=== PATIENT | female | born 1945 | race Caucasian/White ===

== ENCOUNTER → 2017-02-18 | Outpatient (CLI) | payer MEDICARE, BC ==
[~2017-02-18] MED LIST: ACETAMINOPHEN PO; AREDIA INJ; ASPIRIN PO; ASPIRIN81 M2 PO; BACTRIM DS TABL1 TA1 PO; CALTRATE 600+D PO; CALTRATE PLUS T1 TAB PO; CENTRUM PO; CERTAGEN PO; ENALAPRIL MALEA10 MG PO; FEMARA2.5 MG PO; GLUCOTROL PO; IBUPROFEN400 MG PO; LETROZOLE2.5 MG PO; LOVASTATIN20 MG PO; METAMUCIL0.52 G PO; METFORMIN HCL500 M1 PO; METFORMIN PO; MEVACOR PO; MULTI-VITAMIN1 EAC1; NESINA6.25 MG PO; NOLVADEX PO; NORCO 10/325 TA1 TAB PO; PERCOCET 10/3251 TAB PO; VASOTEC PO; VITAMIN E400 UNI1 PO; ZINC 50 MG; ZOVIRAX800 MG PO; [UNRECOGNIZED DRUG - REMARK]
--- NOTE | ~2017-02-18 | CT114 ---
[facility] A Service of [facility] RADIOLOGY TEXT RESULTS PATIENT: SAVANNAH MENDOSA LOCATION: CCAT : 47 UNIT #: [id number] AGE: [address]: Gina Fortune MD SEX: F ORDER DR: [id number] [facility] [address] [place], [place] [address] [id number] O MR#: [id number] Acc #: [id number] NAME: SAVANNAH MENDOSA : 1945 SEX: F STUDY DATE/TIME: 02/18/2017 11:56 [facility]: STUDY DESCRIPTION: CT Soft Tissue Neck W Cont Attending Physician: Gina Fortune M.D. Referring Physician: Gina Fortune M.D. Ordering Physician: Gina Fortune M.D. Primary Care Physician: Sherman Valenzuela M.D. MEDICAL IMAGING REPORT This report is preliminary unless electronic signature is present EXAM Soft tissue neck CT with contrast, 02/18/2017. PROCEDURE Axial contrast-enhanced soft tissue neck CT with multiplanar reformats. This CT exam was performed with one or more of the following radiation dose reduction techniques: automatic exposure control, adjustment of mA and/or kV according to patient size, and iterative reconstruction. COMPARISON STUDIES Prior study dated, 07/02/2016. 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 FINDINGS There is no new adenopathy. There has been extensive mandibular reconstruction since the prior study. There is no new soft tissue mass or new bone erosion or destruction or new adenopathy. The visualized base of the brain is unremarkable. There is a long anterior mandibular screw plate but no evidence of loosening or failure. There is cervical spinal degenerative change but no evidence of new or acute lytic or blastic bone lesions. The visualized lung apices do demonstrate a tiny right apical nodule, no doubt better evaluated on a chest CT of the same date. IMPRESSION Extensive postsurgical change, with no evidence of new adenopathy or new bony lytic lesion or other new abnormality. No convincing evidence of new metastatic disease, though there is a small right apical pulmonary nodule that may be slightly increased since the prior study, but is better assessed on a chest CT also obtained this same date. [facility] A Service of [facility] RADIOLOGY TEXT RESULTS PATIENT: SAVANNAH MENDOSA [id number] [birth year] UNIT #: [id number] AGE: [address]: Gina Fortune MD SEX: F ORDER DR: Dictated by... Jason Santos M.D. THIS IS AN ELECTRONICALLY VERIFIED REPORT Jason Santos M.D. at 02/19/2017 4:00 PM DARLYN/sage TD: 02/18/2017 14:25 JOB #: [id number] MEDICAL IMAGING REPORT Page 1 of 1 COPY
--- NOTE | ~2017-02-18 | CT2 ---
[facility] A Service of [facility] RADIOLOGY TEXT RESULTS PATIENT: SAVANNAH MENDOSA LOCATION: CCAT : 47 UNIT #: [id number] AGE: [address]: Gina Fortune MD SEX: F ORDER DR: [id number] [facility] [address] [place], [place] [address] [id number] O MR#: [id number] [facility] #: [id number] NAME: SAVANNAH MENDOSA : 1945 SEX: F STUDY DATE/TIME: 02/18/2017 11:56 UNIT: [facility] ROOM: STUDY DESCRIPTION: CT Abd and Pelv W Cont Attending Physician: Gina Fortune M.D. Referring Physician: Gina Fortune M.D. Ordering Physician: Gina Fortune M.D. Primary Care Physician: Sherman Valenzuela M.D. MEDICAL IMAGING REPORT This report is preliminary unless electronic signature is present EXAM CT abdomen and pelvis with IV contrast media 02/18/2017 HISTORY Breast cancer restaging of a malignant process. TECHNIQUE Transaxial imaging of the abdomen and pelvis was performed with IV contrast media. This CT exam was performed with one or more of the following radiation dose reduction techniques: automatic exposure control, adjustment of mA and/or kV according to patient size, and iterative reconstruction. COMPARISON STUDIES Study is directly compared to the studies of June 2016. FINDINGS Scans through the liver parenchyma show no focal liver abnormalities. The gallbladder is absent. Spleen is normal. Adrenal glands are normal. No evidence of gastric wall thickening. The left kidney shows some cortical thinning posteriorly. This is unchanged. No dilated or thickened loops of bowel are identified in the abdomen or pelvis. The uterus is absent. There is sigmoid diverticulosis without diverticulitis. There is moderate bladder distension. Bone windows are reviewed. Redemonstrated are sclerotic bone lesions involving the right side of the sacrum and involving the right iliac bone. The sacral lesion does not appear to have changed significantly. The lesion within the iliac bone actually is a little more lucent than it was previous, size has changed very well. An additional lesion is seen in the left side of the sacrum that is significantly smaller. Sclerotic lesion is identified in the L1 vertebral body unchanged in size measuring 8 mm in diameter. No other obvious sclerotic lesions are seen. [facility] A Service of [facility] RADIOLOGY TEXT RESULTS PATIENT: SAVANNAH MENDOSA LOCATION: [facility] : 47 UNIT #: [id number] AGE: [address]: Gina Fortune MD SEX: F ORDER DR: CONCLUSION 1. 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 Overall the size of the bone lesions has not changed although the bone lesion in the right iliac crest is certainly a little more lucent than it was previously. No definite new lesion is seen. No other evidence of metastatic disease within the abdomen or pelvis. 2. Postop changes of prior cholecystectomy and hysterectomy. 3. Sigmoid diverticulosis. Dictated by... Candido Cifuentes M.D. THIS IS AN ELECTRONICALLY VERIFIED REPORT Candido Cifuentes M.D. at 02/22/2017 2:45 PM CORA/braxton TD: 02/18/2017 17:02 JOB #: [id number] MEDICAL IMAGING REPORT Page 1 of 1 COPY
--- NOTE | ~2017-02-18 | CT55 ---
[facility] A Service of [facility] RADIOLOGY TEXT RESULTS PATIENT: SAVANNAH MENDOSA LOCATION: [facility] : 47 UNIT #: [id number] AGE: [address]: Gina Fortune MD SEX: F ORDER DR: [id number] [facility] [address] [place], [place] [address] [id number] O MR#: [id number] [facility] #: [id number] NAME: SAVANNAH MENDOSA : 1945 SEX: F STUDY DATE/TIME: 02/18/2017 11:56 UNIT: [facility] ROOM: STUDY DESCRIPTION: CT Chest W Con Attending Physician: Gina Fortune M.D. Referring Physician: Gina Fortune M.D. Ordering Physician: Gina Fortune M.D. Primary Care Physician: Sherman Valenzuela M.D. MEDICAL IMAGING REPORT This report is preliminary unless electronic signature is present EXAM CT chest with contrast, 02/18/2017 11:56 hours HISTORY 71-year-old woman with history of right breast carcinoma with prior chemotherapy. Observation for suspected malignant neoplasm. No acute chest complaints. COMPARISON Chest CT, 07/02/[address] images were obtained from the thoracic inlet through the adrenal glands. Sagittal and coronal reconstructions were performed. Contrast was Isovue-370, 100 mL IV. Total exam DLP for the neck, chest, abdomen and pelvis exam today is 1502 mGy-cm. This CT exam was performed with one or more of the following radiation dose reduction techniques: automatic exposure control, adjustment of mA and/or kV according to patient size, and iterative reconstruction. FINDINGS Images through the thoracic inlet demonstrate heterogeneous nodule in the right lobe and left lobe of thyroid with some calcification unchanged from prior study. Images through the chest demonstrate no pathologic mediastinal, hilar or axillary adenopathy. Patient is post right mastectomy with no chest wall recurrence seen. There is a left central venous catheter with tip in SVC. Cardiac chambers and pericardium are normal. Lung window images demonstrate a tiny nodule at the right apex unchanged for many years best seen on image 9. This is benign. No new or STS. [facility] A Service of [facility] RADIOLOGY TEXT RESULTS PATIENT: SAVANNAH MENDOSA LOCATION: [facility] : 47 UNIT #: [id number] AGE: [address]: Gina Fortune MD SEX: F ORDER DR: developing nodules are seen. There is no effusion. Bone window images demonstrate no acute bone lesions. There are multilevel anterior osteophytes as well as posterior spurring in the lower thoracic spine unchanged. There is no definite lytic or blastic lesion. Correlation with bone scan 07/02/2016 demonstrated no definite lesions. There is some prominent callus formation at the anterior right first rib likely accounting for the vague density seen on bone scan. IMPRESSION 1. No evidence of metastatic disease within the chest. There is right mastectomy change with no local recurrence. 2. There is a tiny noncalcified nodule at the right apex unchanged for many years meeting CT criteria for benignity. 3. No definite acute bone lesions. There is prominent callus formation at the anterior right first rib likely corresponding to the vague density seen on bone scan 07/02/2016. 4. There are nodules in the right and left lobe of thyroid with calcifications on the right. These appear stable. Dictated by... Radha Hodge M.D. THIS IS AN ELECTRONICALLY VERIFIED REPORT Radha Hodge M.D. at 02/18/2017 2:32 PM Arcelia TD: 02/18/2017 14:19 JOB #: [id number] MEDICAL IMAGING REPORT Page 1 of 1 COPY
[2017-02-18 16:11] LABS: POC - CREATININE 0.85 mg/dL (0.44-1.03); POC - GFR >60.0 mL/min (>60)
== END | disposition home or self-care (01) ==
LOC: CCAT 11:03
PROVIDERS: Internal Medicine Hematology
DX: C50.519 Malignant neoplasm of lower-outer quadrant of unspecified female breast (principal); C79.51 Secondary malignant neoplasm of bone; R91.1 Solitary pulmonary nodule; E04.2 Nontoxic multinodular goiter; K57.30 Diverticulosis of large intestine without perforation or abscess without bleeding; Z43.9 Encounter for attention to unspecified artificial opening; Z90.49 Acquired absence of other specified parts of digestive tract; Z90.710 Acquired absence of both cervix and uterus; Z98.890 Other specified postprocedural states
CPT/HCPCS: 70491; 71260; 74177; 82565; Q9967